=== PATIENT | female | born 1985 | race Caucasian/White ===

== ENCOUNTER 2016-09-28 16:03 | Emergency (ER) | payer OTHER ==
--- NOTE | 2016-09-28 16:55 | ED NURSING NOTES ---
Clinical Report - Nurses [facility] [address] [place] [address] 09/28/2016 16:03 Patient: KONSTANTIN LAMAR TRIAGE Acuity: LEVEL 4. Chief Complaint: (sores on tongue). Alert. No acute distress. SEPSIS SCREEN: Sepsis Screen. Negative (no infection suspected/documented). MIGUELANGEL COMA SCORE: [place] Coma Scale: 15- eyes open spontaneously (4); best verbal response- oriented x 4 (5); best motor response- obeys commands (6). --16:41 Ela Lai R.N. 16:33 09/28/16. BP: 125/78. HR: 104. RR: 20. O2 saturation: 100%. Temp: 98.4 F (oral). Pain level now: 5/10. --16:41 Ela Lai R.N. Weight: 56.6 kg stated. Height/Length: 67 inches Per Patient. BMI: 19.6. --16:38 Ela Lai R.N. Medications None. --16:35 Ela Lai R.N. Medication/allergy information source: the patient. --16:41 Ela Lai R.N. Allergies No Known Drug Allergy. --16:35 Ela Lai R.N. History Arrived by private vehicle. Historian: patient. Accompanied by friend. Primary physician (none). This started today. Treatment SEVERITY OF ILLNESS COORDINATOR: None. PAST MEDICAL HX: Last normal menstrual period- Pt reports she had a baby on August 23. SOCIAL HX: Current some days light tobacco smoker- less than 1/2 a pack per day. Occasional alcohol use. History of heavy drug use: heroin, methamphetamines. Recently used drugs. (pt is not sure when she last used drugs.. Appears to be under the influence in the ED). FALL RISK ASSESSMENT: Fall risk assessment completed. No fall risk identified. NUTRITIONAL RISK ASSESSMENT: The nutritional risk assessment revealed no deficiencies. FUNCTIONAL ASSESSMENT: Functional assessment: no impairments noted. LEARNING NEEDS ASSESSMENT: The learning needs assessment revealed no barriers. SKIN INTEGRITY ASSESSMENT: Skin integrity risk assessment completed. No skin integrity risk identified. --16:41 Ela Lai R.N. PROBLEMS: Substance Abuse. --16:35 Ela Lai R.N. ADDITIONAL SURGERIES: . --16:35 Ela Lai R.N. Assessment GENERAL / NEURO / PSYCH: Oriented X 4. Appears in no acute distress. (rapid speech). She appears anxious, restless and agitated. RESPIRATORY: Respirations not labored. CVS: Capillary refill less than 2 seconds. GI / : Abdomen soft and nontender. SKIN: Mucous membranes are pink. Skin is warm and dry. --16:41 Ela Lai R.N. Interventions ID band on patient. To treatment room. --16:41 Ela Lai R.N. PHYSICAL ASSESSMENT Ambulatory to room. GENERAL / NEURO / PSYCH: Alert. Oriented X 4. Appears in no acute distress. (speaking rapidly). She appears anxious, restless and agitated. HEENT: Pupils equal, round and reactive to light. RESPIRATORY: Respirations not labored. CVS: Capillary refill less than 2 seconds. Pulses within normal limits. GI / : Abdomen soft and nontender. SKIN: Skin intact. Skin is warm and dry. Normal skin turgor. --16:42 Ela Lai R.N. NURSING PROGRESS NOTES 16:42 09/28/16. Two patient identifiers checked. Call light placed in reach. Side rails up x 1. Bed placed in lowest position. Brakes of bed on. Patient ready for evaluation- chart flagged and POLE PEELING MACHINE OPERATOR notified. --16:42 Ela Lai R.N. DISPOSITION / DISCHARGE 17:00 09/28/16. The goals identified in the patient's plan of care were met. No learning barriers present. Discharge instructions provided and reviewed with the patient. Reviewed warnings. Reviewed medication(s). Treatments reviewed. Patient and bar supervisor verbalized understanding. Written instructions provided in [place]. The patient was discharged by the nurse practitioner. She was discharged home and accompanied by family. She left the Emergency Department ambulatory and via private vehicle. Family member driving. FALL RISK ASSESSMENT: Fall risk assessment completed. No fall risk identified. --17:01 Landon Sears R.N. 17:00 09/28/16. BP: 122/76. HR: 91. RR: 16. O2 saturation: 100% on room air. Temp: 98.2 F (oral). --17:01 Landon Sears R.N. 17:01 09/28/16. Departure time: 17:01. --17:01 Landon Sears R.N. Locked/Released at 09/28/2016 17:05 by Landon Sears R.N.
--- NOTE | 2016-09-28 16:55 | ED CLINICAL REPORT ---
Clinical Report - Physicians/Mid Levels [facility] [address] [place] [address] 09/28/2016 16:03 Patient: KONSTANTIN LAMAR Time Seen: 16:33; initial patient contact, initial documentation, patient care assumed. Arrived- By private vehicle. Historian- patient. HISTORY OF PRESENT ILLNESS Chief Complaint: MOUTH SORE. This started today and is still present. Pain described as moderate. The patient has had a sore throat and mouth sores. No nasal discharge or congestion, ear pain or toothache. No swollen jaw or face, jaw pain or facial pain. (c/o sores to tongue and st). Similar symptoms previously: Occasionally, milder. ( says she has chancre type sores to mouth before, but not this bad). Recent medical care: The patient was seen recently by a health care provider. 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 REVIEW OF SYSTEMS No fever, cough or difficulty breathing. All systems otherwise negative, except as recorded above. PAST HISTORY See nurses notes. PROBLEMS: Substance Abuse. --16:35 Ela Lai R.N. ADDITIONAL SURGERIES: . --16:35 Ela Lai R.N. SOCIAL HISTORY Light tobacco smoker. Occasional alcohol use. History of heavy IV drug use: heroin, methamphetamines. Recently used drugs. Under influence in ED. No recent travel. Is a local resident. FAMILY HISTORY Negative. ADDITIONAL NOTES The nursing notes have been reviewed with agreement regarding the chief complaint, HPI, ROS, PMH and patient medications and allergies. PHYSICAL EXAM Appearance: Alert. No acute distress. Anxious. (pt appears under the influence). Head: Normal external inspection. Eyes: Pupils equal, round and reactive to light. Conjunctivae and eyelids normal. ENT: Ears normal. Nose normal. Pharynx abnormal. Gums abnormal. A moderate number of tender mouth ulcerations present in the posterior pharynx and on the gingivae (and tongue). No erythema at the base of the mouth ulceration(s). Lips normal. No trismus present. Uvula midline. Neck: Lymphadenopathy. Normal inspection. Mild right anterior neck and mild left anterior neck lymphadenopathy present. Trachea midline. Thyroid normal. Neck supple. Respiratory: No respiratory distress. Skin: Normal skin color. No rash. Normal skin turgor. Extremities: Extremities exhibit normal ROM. Extremities nontender. Neuro: Oriented X 3. No motor deficit. No sensory deficit. 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 Patient counseled in person regarding the patient's stable condition and diagnosis. Differential Diagnosis: Other possible considerations: substance abuse, mono, herpes, pharyngitis, herpetic gingivostomatitis. Above considerations are based on history and physical exam. Differential diagnosis was discussed with patient. Disposition: Discharged home in good and unchanged condition (16:55). Condition: good and stable. CLINICAL IMPRESSION Herpetic gingivostomatitis INSTRUCTIONS Warnings: GENERAL WARNINGS: Return or contact your physician immediately if your condition worsens or changes unexpectedly, if not improving as expected, or if other problems arise. Specifically return if problem worsens. Prescription Medications: Viscous 2% Lidocaine 30 mL, Maalox 60 mL and Diphenhydramine (12.5 mL/5 mL) 30 mL. Swish, gargle, and spit 1-2 teaspoons every 6 hours as needed for 5 days. Dispense ninety (90) mL. No refills Follow-up: Follow up with your doctor in about five days as needed. Call for an appointment. Summary of care provided to patient. Understanding of the discharge instructions verbalized by patient. (Electronically signed by Sommer Harrell A.R.N.P. 09/28/2016 18:02)
--- NOTE | 2016-09-28 16:55 | ED CLINICAL REPORT ---
Clinical Report - Physicians/Mid Levels [facility] [address] [place] [address] 09/28/2016 16:03 Patient: KONSTANTIN LAMAR Time Seen: 16:33; initial patient contact, initial documentation, patient care assumed. Arrived- By private vehicle. Historian- patient. HISTORY OF PRESENT ILLNESS Chief Complaint: MOUTH SORE. This started today and is still present. Pain described as moderate. The patient has had a sore throat and mouth sores. No nasal discharge or congestion, ear pain or toothache. No swollen jaw or face, jaw pain or facial pain. (c/o sores to tongue and st). Similar symptoms previously: Occasionally, milder. ( says she has chancre type sores to mouth before, but not this bad). Recent medical care: The patient was seen recently by a health care provider. 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 REVIEW OF SYSTEMS No fever, cough or difficulty breathing. All systems otherwise negative, except as recorded above. PAST HISTORY See nurses notes. PROBLEMS: Substance Abuse. --16:35 Ela Lai R.N. ADDITIONAL SURGERIES: . --16:35 Ela Lai R.N. SOCIAL HISTORY Light tobacco smoker. Occasional alcohol use. History of heavy IV drug use: heroin, methamphetamines. Recently used drugs. Under influence in ED. No recent travel. Is a local resident. FAMILY HISTORY Negative. ADDITIONAL NOTES The nursing notes have been reviewed with agreement regarding the chief complaint, HPI, ROS, PMH and patient medications and allergies. PHYSICAL EXAM Appearance: Alert. No acute distress. Anxious. (pt appears under the influence). Head: Normal external inspection. Eyes: Pupils equal, round and reactive to light. Conjunctivae and eyelids normal. ENT: Ears normal. Nose normal. Pharynx abnormal. Gums abnormal. A moderate number of tender mouth ulcerations present in the posterior pharynx and on the gingivae (and tongue). No erythema at the base of the mouth ulceration(s). Lips normal. No trismus present. Uvula midline. Neck: Lymphadenopathy. Normal inspection. Mild right anterior neck and mild left anterior neck lymphadenopathy present. Trachea midline. Thyroid normal. Neck supple. Respiratory: No respiratory distress. Skin: Normal skin color. No rash. Normal skin turgor. Extremities: Extremities exhibit normal ROM. Extremities nontender. Neuro: Oriented X 3. No motor deficit. No sensory deficit. 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 Patient counseled in person regarding the patient's stable condition and diagnosis. Differential Diagnosis: Other possible considerations: substance abuse, mono, herpes, pharyngitis, herpetic gingivostomatitis. Above considerations are based on history and physical exam. Differential diagnosis was discussed with patient. Disposition: Discharged home in good and unchanged condition (16:55). Condition: good and stable. CLINICAL IMPRESSION Herpetic gingivostomatitis INSTRUCTIONS Warnings: GENERAL WARNINGS: Return or contact your physician immediately if your condition worsens or changes unexpectedly, if not improving as expected, or if other problems arise. Specifically return if problem worsens. Prescription Medications: Viscous 2% Lidocaine 30 mL, Maalox 60 mL and Diphenhydramine (12.5 mL/5 mL) 30 mL. Swish, gargle, and spit 1-2 teaspoons every 6 hours as needed for 5 days. Dispense ninety (90) mL. No refills Follow-up: Follow up with your doctor in about five days as needed. Call for an appointment. Summary of care provided to patient. Understanding of the discharge instructions verbalized by patient. (Electronically signed by Sommer Harrell A.R.N.P. 09/28/2016 18:02)
--- NOTE | 2016-09-28 16:55 | ED NURSING NOTES ---
Clinical Report - Nurses [facility] [address] [place] [address] 09/28/2016 16:03 Patient: KONSTANTIN LAMAR TRIAGE Acuity: LEVEL 4. Chief Complaint: (sores on tongue). Alert. No acute distress. SEPSIS SCREEN: Sepsis Screen. Negative (no infection suspected/documented). MIGUELANGEL COMA SCORE: [place] Coma Scale: 15- eyes open spontaneously (4); best verbal response- oriented x 4 (5); best motor response- obeys commands (6). --16:41 Ela Lai R.N. 16:33 09/28/16. BP: 125/78. HR: 104. RR: 20. O2 saturation: 100%. Temp: 98.4 F (oral). Pain level now: 5/10. --16:41 Ela Lai R.N. Weight: 56.6 kg stated. Height/Length: 67 inches Per Patient. BMI: 19.6. --16:38 Ela Lai R.N. Medications None. --16:35 Ela Lai R.N. Medication/allergy information source: the patient. --16:41 Ela Lai R.N. Allergies No Known Drug Allergy. --16:35 Ela Lai R.N. History Arrived by private vehicle. Historian: patient. Accompanied by friend. Primary physician (none). This started today. Treatment SECONDS GRADER: None. PAST MEDICAL HX: Last normal menstrual period- Pt reports she had a baby on August 23. SOCIAL HX: Current some days light tobacco smoker- less than 1/2 a pack per day. Occasional alcohol use. History of heavy drug use: heroin, methamphetamines. Recently used drugs. (pt is not sure when she last used drugs.. Appears to be under the influence in the ED). FALL RISK ASSESSMENT: Fall risk assessment completed. No fall risk identified. NUTRITIONAL RISK ASSESSMENT: The nutritional risk assessment revealed no deficiencies. FUNCTIONAL ASSESSMENT: Functional assessment: no impairments noted. LEARNING NEEDS ASSESSMENT: The learning needs assessment revealed no barriers. SKIN INTEGRITY ASSESSMENT: Skin integrity risk assessment completed. No skin integrity risk identified. --16:41 Ela Lai R.N. PROBLEMS: Substance Abuse. --16:35 Ela Lai R.N. ADDITIONAL SURGERIES: . --16:35 Ela Lai R.N. Assessment GENERAL / NEURO / PSYCH: Oriented X 4. Appears in no acute distress. (rapid speech). She appears anxious, restless and agitated. RESPIRATORY: Respirations not labored. CVS: Capillary refill less than 2 seconds. GI / : Abdomen soft and nontender. SKIN: Mucous membranes are pink. Skin is warm and dry. --16:41 Ela Lai R.N. Interventions ID band on patient. To treatment room. --16:41 Ela Lai R.N. PHYSICAL ASSESSMENT Ambulatory to room. GENERAL / NEURO / PSYCH: Alert. Oriented X 4. Appears in no acute distress. (speaking rapidly). She appears anxious, restless and agitated. HEENT: Pupils equal, round and reactive to light. RESPIRATORY: Respirations not labored. CVS: Capillary refill less than 2 seconds. Pulses within normal limits. GI / : Abdomen soft and nontender. SKIN: Skin intact. Skin is warm and dry. Normal skin turgor. --16:42 Ela Lai R.N. NURSING PROGRESS NOTES 16:42 09/28/16. Two patient identifiers checked. Call light placed in reach. Side rails up x 1. Bed placed in lowest position. Brakes of bed on. Patient ready for evaluation- chart flagged and SOLID GLASS ROD DOWEL MACHINE OPERATOR notified. --16:42 Ela aLi R.N. DISPOSITION / DISCHARGE 17:00 09/28/16. The goals identified in the patient's plan of care were met. No learning barriers present. Discharge instructions provided and reviewed with the patient. Reviewed warnings. Reviewed medication(s). Treatments reviewed. Patient and roller turner verbalized understanding. Written instructions provided in Fijian. The patient was discharged by the nurse practitioner. She was discharged home and accompanied by family. She left the Emergency Department ambulatory and via private vehicle. Family member driving. FALL RISK ASSESSMENT: Fall risk assessment completed. No fall risk identified. --17:01 Landon Sears R.N. 17:00 09/28/16. BP: 122/76. HR: 91. RR: 16. O2 saturation: 100% on room air. Temp: 98.2 F (oral). --17:01 Landon Sears R.N. 17:01 09/28/16. Departure time: 17:01. --17:01 Landon Sears R.N. Locked/Released at 09/28/2016 17:05 by Landon Sears R.N.
--- NOTE | 2016-09-28 18:02 | ED MED RECONCILIATION SUMMARY ---
Patient: KONSTANTIN LAMAR Medication Reconciliation Report [facility] VisitID: [id number] [address] [place] [address] 31y, F Registration Date/Time: 09/28/2016 Weight: 56.6 kg Height/Length: 67 in. BMI: 19.6 ALLERGIES: No Known Drug Allergy The patient's Home Medications are listed below: NONE. The source(s) of the original Home Medication information: patient The following Medications were given to the patient in the Emergency Department: None. The following Medications were prescribed to the patient: Viscous 2% Lidocaine 30 mL, Maalox 60 mL and Diphenhydramine (12.5 mL/5 mL) 30 mL. Swish, gargle, and spit 1-2 teaspoons every 6 hours as needed for 5 days. Dispense ninety (90) mL. No refills -- Sommer Harrell A.R.NChetP.
--- NOTE | 2016-09-28 18:02 | ED DISCHARGE INSTRUCTIONS ---
Patient: KONSTANTIN LAMAR General Instructions [facility] VisitID: [id number] [place] [address] 31y, F Registration Date/Time: 09/28/2016 Herpetic gingivostomatitis INSTRUCTIONS Warnings: GENERAL WARNINGS: Return or contact your physician immediately if your condition worsens or changes unexpectedly, if not improving as expected, or if other problems arise. Specifically return if problem worsens. Prescription Medications: Viscous 2% Lidocaine 30 mL, Maalox 60 mL and Diphenhydramine (12.5 mL/5 mL) 30 mL. Swish, gargle, and spit 1-2 teaspoons every 6 hours as needed for 5 days. Dispense ninety (90) mL. No refills Follow-up: Follow up with your doctor in about five days as needed. Call for an appointment. Summary of care provided to patient. Understanding of the discharge instructions verbalized by patient. ADDITIONAL INFORMATION Gingivo-Stomatitis [Child] Gingivo-stomatitis is an infection affecting the gums, tongue, throat, tonsils or lining of the mouth. It causes swelling and small painful ulcers. There may be a fever. The cause of your infection may be viral or bacterial. Bacterial infections are treated with an antibiotic. Viral infections are treated only with comfort measures, since antibiotics won't be helpful. This infection should go away within 710 days. Home Care: For Mouth Sores: Use a local numbing solution such as Anbesol (comes in Baby, Regular and Maximum strength) for pain relief. If this is not available, you may use any numbing solution for teething babies. You may apply this directly to the sores with a cotton swab or with your finger. Use the numbing solution just before meals if eating is a problem. For Gum Sores: Use a cotton swab to apply Gly-Oxide (carbamide peroxide) to the gums four times a day. This is an vyhd-llc-btciyno antiseptic for the mouth. If this is not available, you may use half-strength hydrogen peroxide. Dilute 1/2 cup hydrogen peroxide with 1/2 cup water. For Mouth Or Gum Sores: Older children may rinse the mouth with warm salt water (1/2 teaspoon of salt in 1 glass of warm water). Give a soft diet with plenty of fluids to prevent dehydration. If your child doesn't want to eat solid foods, it's okay for a few days, as long as s/he drinks lots of fluid. Cool drinks and frozen treats (sherbet) are soothing and easier to take. Avoid citrus juices (orange juice, lemonade, etc.) and salty or spicy foods. These may cause more pain to the mouth sores. Use acetaminophen (Tylenol) for fever, fussiness or discomfort. In infants over six months of age, you may use ibuprofen (Children's Motrin) instead of Tylenol. (Aspirin should never be used in anyone under 18 years of age who is ill with a fever. It may cause severe liver damage.) Children should stay home until their fever is gone and they are eating and drinking well. Follow Up with your doctor as advised if there has been no improvement after five days. Get Prompt Medical Attention if any of the following occur: Unable to eat or drink due to mouth pain Trouble breathing or swallowing Fever of 100.4F (38C) oral or 101.4F (38.5C) rectal or higher, not better with fever medication Unusual fussiness, drowsiness or confusion or seizure No wet diapers for 8 hours, no tears when crying; sunken eyes or dry mouth You have been given the following additional information: Gingivo - Stomatitis (Child) (Electronically signed by Sommer Harrell A.R.N.P. 09/28/2016 18:02)
--- NOTE | 2016-09-28 18:02 | ED MED RECONCILIATION SUMMARY ---
Patient: KONSTANTIN LAMAR Medication Reconciliation Report [facility] VisitID: [id number] [address] [place] [address] 31y, F Registration Date/Time: 09/28/2016 Weight: 56.6 kg Height/Length: 67 in. BMI: 19.6 ALLERGIES: No Known Drug Allergy The patient's Home Medications are listed below: NONE. The source(s) of the original Home Medication information: patient The following Medications were given to the patient in the Emergency Department: None. The following Medications were prescribed to the patient: Viscous 2% Lidocaine 30 mL, Maalox 60 mL and Diphenhydramine (12.5 mL/5 mL) 30 mL. Swish, gargle, and spit 1-2 teaspoons every 6 hours as needed for 5 days. Dispense ninety (90) mL. No refills -- Sommer Harrell A.R.NChetP.
--- NOTE | 2016-09-28 18:02 | ED MAR SUMMARY ---
..... Medication Administration Record [facility] [address] [place] [id number] Patient: KONSTANTIN LAMAR Visit ID: [id number] 31y, F Weight: 56.6 kg Height/Length: 67 in BMI: 19.6 ALLERGIES: No Known Drug Allergy
--- NOTE | 2016-09-28 18:02 | ED MAR SUMMARY ---
..... Medication Administration Record [facility] [address] [place], [place] [id number] Patient: KONSTANTIN LAMAR Visit ID: [id number] 31y, F Weight: 56.6 kg Height/Length: 67 in BMI: 19.6 ALLERGIES: No Known Drug Allergy
== END 2016-09-28 17:01 | disposition home or self-care (01) ==
LOC: ED SRH 16:03 → EDBD 16:04 → ED SRH 16:04
DX: B00.2 Herpesviral gingivostomatitis and pharyngotonsillitis (principal); F17.210 Nicotine dependence, cigarettes, uncomplicated; F19.10 Other psychoactive substance abuse, uncomplicated